=== PATIENT | male | born 1940 | race Two or more races ===

== ENCOUNTER 2024-03-02 10:46 | Outpatient (CLI) | payer OTHER | END 2024-03-02 10:57 | disposition home or self-care (01) | LOC: SONOGRAMA 10:46 | DX: R10.9 Unspecified abdominal pain (principal); N18.30 Chronic kidney disease, stage 3 unspecified; R31.9 Hematuria, unspecified; R25.1 Tremor, unspecified; R20.2 Paresthesia of skin; R41.3 Other amnesia; R41.82 Altered mental status, unspecified ==